=== PATIENT | male | born 1960 | race Caucasian/White ===

== ENCOUNTER 2019-10-05 08:52 | Day surgery (SDC) | payer OTHER ==
[~2019-10-05 08:52] MED LIST: CENTRUM SILVER1 EAC2 PO; Prinivil10 MG PO
--- NOTE | 2019-10-05 09:15 | NUR ---
INTO [facility] ADMISSION TO UNIT STARTED. Ambulatory in Day Surgery Patient States Post-Procedure ride home has been arranged. Lungs clear T/O to Auscultation. History, Chart, Medications and Allergies reviewed before start of procedure.
--- NOTE | 2019-10-05 12:58 | NUR ---
PATIENT PROVIDED DISCHARGE INFO REGARDING FOLLOW UP PLANS, WOUND CARE, MEDICATION INFO, AND REASONS TO RETURN TO THE HOSPITAL. PATIENT VERBALIZED UNDERSTANDING. NO NEW DISCHARGE NOTED. VSS. A/O. NO SIGNS OF ACUTE DISTRESS. PATIENT TAKEN TO MAIN ENTRANCE VIA WHEELCHAIR BY THIS RN. BASEBALL [employer]ER ASSUMED RESPONSIBILITY FOR PATIENT'S TRANSPORTATION TO HOME.
== END 2019-10-05 23:04 | disposition home or self-care (01) ==
LOC: ORSCMMR 08:52 → ORD 09:15 → ORSCMMR 23:04 → ORSCSDS 11-16 10:30
PROVIDERS: Podiatrist Foot & Ankle Surgery
PROC: 0SRQ0JZ Replacement of Left Toe Phalangeal Joint with Synthetic Substitute, Open Approach (ICD-10-PCS; principal; 2019-10-05 09:15)
PROC: 0QSP04Z Reposition Left Metatarsal with Internal Fixation Device, Open Approach (ICD-10-PCS; principal; 2019-10-05 09:15)
DX: M20.42 Other hammer toe(s) (acquired), left foot (principal); M20.5X2 Other deformities of toe(s) (acquired), left foot; I10 Essential (primary) hypertension; Z79.899 Other long term (current) drug therapy
CPT/HCPCS: A9270-GY; C1713; C1769; J0690; J1885; J2250; J2704; J3010; J7120

== ENCOUNTER 2021-06-02 09:49 | Day surgery (SDC) | payer OTHER ==
[~2021-06-02] VITALS: Ht 172.7 cm; Wt 81.2 kg
[2021-06-02] MEDS ORDERED: FISH OIL 1,2001 EAC7 (10:19)
== END 2021-06-02 12:05 | disposition home or self-care (01) ==
LOC: ORSCSDS 09:49
PROVIDERS: Surgery
PROC: 0DJD8ZZ Inspection of Lower Intestinal Tract, Via Natural or Artificial Opening Endoscopic (ICD-10-PCS; principal; 2021-06-02 11:30)
DX: Z12.11 Encounter for screening for malignant neoplasm of colon (principal); I10 Essential (primary) hypertension; G47.33 Obstructive sleep apnea (adult) (pediatric); Z79.899 Other long term (current) drug therapy
CPT/HCPCS: 87426; C9803; J2704; J7120